=== PATIENT | female | born 1990 | race Caucasian/White ===

== ENCOUNTER 2021-07-05 09:26 | Inpatient (IN) | payer OTHER, SELFPAY ==
[2022-06-13] MEDS ORDERED: HYDROcodone/Acetaminophen 5/325 mg Tablet PO PRN ×2 (19:11)
[2022-06-13] MEDS ORDERED: Ibuprofen 800 MG TAB PO PRN (19:11)
[2022-06-13] MEDS ORDERED: Butorphanol Tartrate 1 MG/ML VIAL SLOW IVP PRN (19:11)
[2022-06-13] MEDS ORDERED: NS w/ Oxytocin 30 units 500 ML IV SCH (19:11)
[2022-06-13] MEDS ORDERED: Ondansetron PF 4 MG/2 ML Vial IVP PRN (19:11)
[2022-06-13] MEDS ORDERED: Misoprostol 200 MCG TAB PO SCH (19:11)
[2022-06-13] MEDS ORDERED: Promethazine HCl 25 MG/ML VIAL IM PRN (19:11)
[2022-06-13] MEDS ORDERED: Diphenoxylate HCl/Atropine Tablet PO PRN ×2 (19:11)
[2022-06-13] MEDS ORDERED: ALPRAZolam 0.5 MG TAB PO PRN (19:11)
[2022-06-13] MEDS ORDERED: Acetaminophen 500 MG TAB PO PRN (19:11)
[2022-06-13] MEDS ORDERED: Misoprostol 100 MCG TAB VAG SCH (19:11)
[2022-06-13] MEDS ORDERED: Lidocaine 1% (PF) 30 ML VIAL SC PRN (19:11)
[2022-06-13] MEDS ORDERED: hydrALAZINE 20 MG/ML VIAL SLOW IVP PRN (19:11)
[2022-06-13] MEDS ORDERED: Zolpidem Tartrate 5 MG TAB PO PRN (19:11)
[2022-06-13] MEDS ORDERED: Lactated Ringer's 1,000 ML IV SCH (19:11)
[2022-06-13 19:13] VITALS: BMI 27.8
[2022-06-13 20:07] LABS: Hemoglobin 13.2 g/dL (12.0-15.5); Mean Corpuscular HGB CONC 34.4 g/dL (32.0-36.0); Mean Corpuscular Hemoglobin 28.4 pg (27.0-33.0); Mean Corpuscular Volume 82.6 fl (81.6-98.3); Mean Platelet Volume 9.9 fl (7.4-10.4); Platelet Count 319 10x3/uL (150-450); RBC Distribution Width 12.7 % (11.5-14.5); Red Blood Cell (RBC) Count 4.65 10x6/uL (3.90-5.03); White Blood Cell (WBC) Count 9.5 10x3/uL (3.5-10.5)
[2022-06-13] MEDS: CEFAZOLIN 1 GM in Sodium Chloride 0.9% 100 ML IVPB SCH (20:09)
[2022-06-13 21:02] LABS: SARS-CoV-2 NAA Rapid Test Not Detected (NotDetected)
[2022-06-14] MEDS ORDERED: Misoprostol 100 MCG TAB ONE ×2 (00:01→04:13)
[2022-06-14] MEDS: Misoprostol 200 MCG TAB ONE ×4 (00:03→05:47)
[2022-06-14] MEDS: CEFAZOLIN 1 GM in Sodium Chloride 0.9% 100 ML IVPB SCH (04:00)
[2022-06-14] MEDS ORDERED: Methylergonovine 0.2 MG/ML VIAL ONE (05:42)
[2022-06-14] MEDS ORDERED: Carboprost 250 MCG/ML AMP ONE (05:43)
[2022-06-14] MEDS ORDERED: NS w/ Oxytocin 30 units 500 ML ONE (05:43)
[2022-06-14] MEDS ORDERED: Misoprostol 200 MCG TAB ONE (05:44)
[2022-06-14] MEDS ORDERED: Bisacodyl 10 MG SUPP PR PRN (07:03)
[2022-06-14] MEDS ORDERED: Boostrix 0.5 ML (Tdap) VIAL IM ONE (07:03)
[2022-06-14] MEDS ORDERED: Ondansetron PF 4 MG/2 ML Vial IVP PRN (07:03)
[2022-06-14] MEDS ORDERED: HYDROcodone/Acetaminophen 5/325 mg Tablet PO PRN (07:03)
[2022-06-14] MEDS ORDERED: diphenhydrAMINE 25 MG CAP PO PRN (07:03)
[2022-06-14] MEDS ORDERED: Milk Of Magnesia 30 ML UDCUP PO PRN (07:03)
[2022-06-14] MEDS ORDERED: hydrALAZINE 20 MG/ML VIAL SLOW IVP PRN (07:03)
[2022-06-14] MEDS ORDERED: NS w/ Oxytocin 30 units 500 ML IV SCH (07:15)
[2022-06-14] MEDS ORDERED: Ferrous Sulfate 325 MG TAB PO SCH (08:00)
[2022-06-14] MEDS: HYDROcodone/Acetaminophen 5/325 mg Tablet PO PRN ×2 (08:07→12:12)
[2022-06-14] MEDS ORDERED: Docusate 100 MG CAP PO SCH (09:00)
[2022-06-14 11:52] LABS: Hemoglobin 9.8 g/dL (12.0-15.5); Mean Corpuscular HGB CONC 34.1 g/dL (32.0-36.0); Mean Corpuscular Hemoglobin 28.4 pg (27.0-33.0); Mean Corpuscular Volume 83.2 fl (81.6-98.3); Platelet Count 285 10x3/uL (150-450); RBC Distribution Width 12.5 % (11.5-14.5); Red Blood Cell (RBC) Count 3.45 10x6/uL (3.90-5.03); White Blood Cell (WBC) Count 10.5 10x3/uL (3.5-10.5)
[2022-06-14] MEDS ORDERED: Acetaminophen 325 MG TAB PO PRN (13:25)
[2022-06-14] MEDS ORDERED: Misoprostol 200 MCG TAB PO SCH (13:30)
[2022-06-14] MEDS ORDERED: Ibuprofen 800 MG TAB PO SCH (14:00)
[2022-06-15] MEDS ORDERED: Ferrous Sulfate 325 MG TAB PO SCH (08:00)
[2022-06-15] MEDS ORDERED: Prenatal Vitamin 1 TAB PO SCH (09:00)
== END 2022-06-14 17:57 | disposition home or self-care (01) | DRG 779 ==
LOC: CSHLD 06-13 18:26
PROVIDERS: ADMIT Obstetrics & Gynecology; ATTEND Obstetrics & Gynecology
PROC: 10D17Z9 Manual Extraction of Products of Conception, Retained, Via Natural or Artificial Opening (ICD-10-PCS; principal; 2022-06-14)
PROC: 3E0P7VZ Introduction of Hormone into Female Reproductive, Via Natural or Artificial Opening (ICD-10-PCS; 2022-06-14)
DX: O02.1 Missed abortion (principal); O99.112 Other diseases of the blood and blood-forming organs and certain disorders involving the immune mechanism complicating pregnancy, second trimester; D68.59 Other primary thrombophilia; O72.1 Other immediate postpartum hemorrhage; Z3A.16 16 weeks gestation of pregnancy; F41.9 Anxiety disorder, unspecified; F32.A Depression, unspecified; O99.342 Other mental disorders complicating pregnancy, second trimester; Z79.899 Other long term (current) drug therapy; Z88.0 Allergy status to penicillin; O43.892 Other placental disorders, second trimester; D18.1 Lymphangioma, any site; O99.892 Other specified diseases and conditions complicating childbirth
CPT/HCPCS: 85027; 86850; 86900; 86901; 88305; J0595; J0690; J2590; J3490; U0002

== ENCOUNTER 2022-03-29 17:51 | Emergency (ER) | payer OTHER ==
[2022-03-29 18:18] LABS: Bilirubin Neg (Negative); Blood, Urine 150 (Negative); Clarity Clear (Clear); Glucose, Urine (Dipstick) Normal (Negative); Ketone, Urine Negative (Negative); Leukocyte Negative (Negative); Nitrite Negative (Negative); Protein, Urine (Dipstick) Negative (Neg-Trace); Urobilinogen Normal mg/dL (Less than 2)
[2022-03-29 18:27] LABS: Bacteria/HPF 1+ HPF (None Seen); WBC/HPF 0-3 HPF (0-3)
[2022-03-29 18:31] LABS: #Eosinphils 0.2 10x3/uL (0.0-0.5); #Monocytes 0.6 10x3/uL (0.0-1.1); #Neutrophils 5.7 10x3/uL (1.5-8.4); %Basophils 0.3 % (0.0-2.0); %Eosinophils 1.6 % (0.0-6.0); %Lymphocytes 30.9 % (18.0-47.0); %Monocytes 6.4 % (0.0-10.0); %Neutrophils 60.5 % (40.0-75.0); Hemoglobin 13.2 g/dL (12.0-15.5); Mean Corpuscular HGB CONC 33.2 g/dL (32.0-36.0); Mean Corpuscular Hemoglobin 27.8 pg (27.0-33.0); Mean Platelet Volume 9.2 fl (7.4-10.4); Platelet Count 342 10x3/uL (150-450); RBC Distribution Width 14.3 % (11.5-14.5); Red Blood Cell (RBC) Count 4.74 10x6/uL (3.90-5.03); White Blood Cell (WBC) Count 9.4 10x3/uL (3.5-10.5)
== END 2022-03-29 19:55 | disposition home or self-care (01) ==
LOC: CSHERS 17:51
DX: O20.0 Threatened abortion (principal); Z3A.01 Less than 8 weeks gestation of pregnancy
CPT/HCPCS: 36415; 76856; 81003; 81015; 84702; 85025; 86900; 86901

== ENCOUNTER 2022-06-10 16:53 | Emergency (ER) | payer OTHER | END 2022-06-10 20:48 | disposition home or self-care (01) | LOC: CSHERS 16:53 | DX: O36.4XX0 Maternal care for intrauterine death, not applicable or unspecified (principal) | CPT/HCPCS: 76815 ==

== ENCOUNTER 2025-07-15 05:38 | Day surgery (SDC) | payer OTHER ==
[2025-07-09 12:47] VITALS: BMI 24.5
[2025-07-09 14:25] LABS: Hematocrit 41.1 % (34.9-44.5); Hemoglobin 13.8 g/dL (12.0-15.5); Mean Corpuscular Hemoglobin 28.9 pg (27.0-33.0); Mean Corpuscular Volume 86.0 fL (81.6-98.3); Platelet Count 384 10x3/uL (150-450); Red Blood Cell (RBC) Count 4.78 10x6/uL (3.90-5.03); White Blood Cell (WBC) Count 9.38 10x3/uL (3.5-10.5)
[2025-07-09 14:27] LABS: Glucose, Urine (Dipstick) Normal (Negative); Leukocyte 100 (Negative); Protein, Urine (Dipstick) 30 mg/dl (Neg-Trace); Specific Gravity, Urine 1.020 (1.005-1.030)
[2025-07-09 14:41] LABS: BHCG - Serum Negative (NEGATIVE); Pregs Control Background? CLEAR/WHITE (CLR/WHITE); Pregs Control Bar Appear? YES (CONTROL BAR)
[2025-07-15] MEDS ORDERED: Acetaminophen 500 MG TAB ONE (06:32)
[2025-07-15] MEDS ORDERED: Bupivacaine HCl 0.5%/Epinephrine 1:200,000/PF 30 ml Vial ONE (06:36)
[2025-07-15] MEDS ORDERED: PROPOFOL 40 ML ONE (06:47)
[2025-07-15] MEDS ORDERED: SUGAMMADEX SODIUM 200 MG/2 ML VIAL ONE (06:47)
[2025-07-15] MEDS ORDERED: Lidocaine 1% PF 5 ML VIAL ONE (06:47)
[2025-07-15] MEDS ORDERED: Ondansetron PF 4 MG/2 ML Vial ONE ×2 (06:47→09:20)
[2025-07-15] MEDS ORDERED: Rocuronium Bromide 10 MG/ML (10ML VIAL) ONE (06:47)
[2025-07-15] MEDS ORDERED: CEFAZOLIN 2 GM VIAL ONE (06:54)
[2025-07-15] MEDS ORDERED: PHENYLEPHRINE-NS 100 MCG/ML 10 ML SYRINGE ONE (07:11)
[2025-07-15] MEDS ORDERED: CEFAZOLIN 1 GM VIAL ONE (07:26)
[2025-07-15] MEDS ORDERED: Ketorolac Tromethamine 30 MG (1 mL) VIAL ONE (07:26)
== END 2025-07-15 10:30 | disposition home or self-care (01) ==
LOC: CSHSDC 05:38
PROVIDERS: ATTEND Obstetrics & Gynecology
PROC: 3E1P38Z Irrigation of Female Reproductive using Irrigating Substance, Percutaneous Approach (ICD-10-PCS; principal; 2025-07-15)
DX: N80.203 Endometriosis of bilateral fallopian tubes, unspecified depth (principal); N80.103 Endometriosis of bilateral ovaries, unspecified depth; N80.329 Endometriosis of the posterior cul-de-sac, unspecified depth; N80.353 Endometriosis of bilateral pelvic sidewall, unspecified depth; N73.6 Female pelvic peritoneal adhesions (postinfective); Z87.59 Personal history of other complications of pregnancy, childbirth and the puerperium; Z98.890 Other specified postprocedural states; Z88.0 Allergy status to penicillin
CPT/HCPCS: 81003; 84703; 85027; 86850; 86900; 86901; C1889; J0690; J1100; J1885; J2405; J2704; J3010